=== PATIENT | female | born 1960 | race Caucasian/White ===

== ENCOUNTER 2017-06-14 08:22 | Emergency (ER) | payer SELFPAY ==
[~2017-06-14] VITALS: Ht 157.5 cm; Wt 74.0 kg
[~2017-06-14 08:22] MED LIST: ASPI-391 PO
[2017-06-14 08:23] VITALS: TEMP 36.8; Ht 157.5 cm; Wt 74.0 kg
[2017-06-14] MEDS ORDERED: ONDANSETRON INJ 2 MG/ML 2 ML VIAL IV STA (09:06)
[2017-06-14] MEDS ORDERED: SODIUM CHLORIDE 0.9% 1000ML 1,000 ML IV STA (09:06)
[2017-06-14] MEDS ORDERED: ACETAMINOPHEN IV 100 ML IV ONE (09:15)
[2017-06-14 09:27] LABS: HEMATOCRIT 44.5 % (37-47); HEMOGLOBIN 15.9 g/dL (12.0-16.0); MEAN CELL VOLUME 88.6 fL (80-100); MEAN CORPUSCULAR HEMOGLOBIN 31.7 pg (25-34); MEAN CORPUSCULAR HGB CONC 35.7 g/dl (32-36); PLATELET COUNT 158 K/uL (130-400); RED CELL DISTRIBUTION WIDTH CV 13.1 % (11.5-14.5); RED CELL DISTRIBUTION WIDTH SD 42.7 fL (36.4-46.3); WHITE BLOOD COUNT 9.23 K/uL (4.8-10.8)
--- NOTE | 2017-06-14 09:33 | DIAGNOSTIC IMAGING REPORT ---
SINGLE VIEW CHEST CLINICAL HISTORY: Generalized abdominal pain. Flulike symptoms. FINDINGS: An AP, portable, upright chest radiograph is obtained. No prior studies are available for comparison at the time of dictation. The examination is degraded by portable technique and patient rotation. The cardiomediastinal silhouette is unremarkable. Streaky bibasilar opacities likely represent atelectasis. The lungs and pleural spaces are otherwise clear. No pneumothorax is seen. The skeletal structures are osteopenic. The bony thorax is grossly intact. Mild degenerative change is noted in the thoracic spine. IMPRESSION: Streaky bibasilar airspace opacities likely represent atelectasis. Correlate clinically for evidence of an infectious/inflammatory pneumonitis. Electronically signed by: Fabio Humphrey M.D. 06/14/2017 9:32 AM Dictated Date/Time: 06/14/2017 9:31 AM
[2017-06-14 09:46] LABS: ALBUMIN 3.4 gm/dl (3.4-5.0); ALT/SGPT 18 U/L (12-78); BLOOD UREA NITROGEN 14 mg/dl (7-18); CALCIUM 9.3 mg/dl (8.5-10.1); CARBON DIOXIDE 21 mmol/L (21-32); CREATININE 0.75 mg/dl (0.60-1.20); GLUCOSE 105 mg/dl (70-99); LIPASE 108 U/L (73-393); POTASSIUM 3.5 mmol/L (3.5-5.1); SODIUM 133 mmol/L (136-145)
[2017-06-14 09:51] LABS: ALKALINE PHOSPHATASE 106 U/L (45-117); AST/SGOT 20 U/L (15-37); TOTAL PROTEIN 7.4 gm/dl (6.4-8.2)
[2017-06-14 09:52] LABS: BASO % 0.2 %; BASO ABS # 0.02 K/uL (0-0.2); IG# 0.02 K/uL (0.00-0.02); LYMPH % 14.7 %; LYMPH ABS # 1.36 K/uL (1.2-3.4); MONO % 7.2 %; MONO ABS # 0.66 K/uL (0.11-0.59); NEUT % 77.7 %; NEUT ABS # 7.17 K/uL (1.4-6.5)
[2017-06-14 10:28] LABS: INFLUENZA B ANTIGEN Neg for Influ B (NEG)
[2017-06-14] MEDS ORDERED: SODIUM CHLORIDE 0.9% 1000ML 1,000 ML IV ONE (11:00)
[2017-06-14 11:03] VITALS: BP 132/77; PULSE 81; O2SAT 94
[2017-06-14] MEDS ORDERED: ONDA4TAB46 PO (11:11)
[2017-06-14] MEDS ORDERED: BENZ100C18 PO (11:11)
[2017-06-14] MEDS ORDERED: NITR-5 PO (11:11)
--- NOTE | 2017-06-15 06:27 | EMERGENCY ROOM VISIT NOTE ---
ED Visit Note First contact with patient: 08:30 Chief Complaint: Flulike symptoms. History of Present Illness: Ms. Jacques is a 57-year-old white female who ambulates into the ED complaining of flulike symptoms. Patient reports her symptoms started last week and have been ongoing. She reports she was exposed to a grandchild who had been diagnosed with influenza. Patient reports her presentation of symptoms started last Sunday, 6 days ago , since that time they have been constant. She reports her symptoms started with generalized fatigue and exhaustion. This was associated with a decreased appetite. Then on Sunday she reports having a episode of nausea and vomiting and the development of upper respiratory tract symptoms including chills, body aches, sweats, runny nose, sinus congestion, ear pressure, sore throat and a nonproductive cough. Since that time her symptoms have waxed and waned in intensity but once again has made her generally feel fatigued. She then reports on Sunday she started developing medial thigh pain bilaterally , thoracic and lumbar back pain and started feeling short of breath. Currently she describes her thigh and back pain as a hot sensation. She rates her thigh and back pain and 8/10. These discomforts are nonradiating. She has not identified any aggravating or alleviating factors related to the symptoms. She reports she has been using Mucinex and TheraFlu for her symptoms without relief. Associated with her symptoms she reports she has been having sensations of fever but has not checked her temperature, her fatigue is increasing, she is not been able to sleep she has had intermittent nausea and one episode of vomiting, a mild headache and 3-4 episodes of light brown watery stools. She feels these are similar symptoms that her grandchild had with the flow. She denies skin eruptions, skin color changes, visual changes, hearing changes, difficulty swallowing, difficulty walking/coordinating body movements, neck pain /stiffness, chest pain, wheezing, hemoptysis, previous clots, claudication, cramping, recent surgery/inactivity/extended travel, abdominal pain, hematochezia, hematemesis, melena, urinary symptoms, hematuria, flank pain, lower extremity weakness/numbness/tingling. Review of Systems: As noted above in history of present illness. All body systems were reviewed and found to be negative as noted above. Past Medical History: Migraine headaches, depression, status post tonsillectomy and adenoidectomy.. Current Medications: Patient denies. Allergies to Medications: Patient denies. Social History: Patient is currently employed; she feels safe in her home environment; she admits to tobacco use and alcohol use Physical Examination: Vital Signs: Date Time Temp Pulse Resp B/P (MAP) Pulse Ox O2 Delivery O2 Flow Rate FiO2 06/14/17 11:03 81 23 132/77 94 Room Air 06/14/17 10:07 80 20 122/81 97 Room Air 06/14/17 09:39 84 06/14/17 09:37 86 21 137/78 97 Room Air 06/14/17 08:23 36.8 111 18 131/83 95 Room Air GENERAL: 57-year-old female in mild to moderate distress due to symptoms, nontoxic-appearing, afebrile and hemodynamically stable. NEUROLOGICAL: Awake, alert and oriented to person, place and time. Answering questions appropriately and following commands. Normal gait. Good hand eye coordination. Cranial nerves II through XII grossly intact. Good short-term and long-term recall. SKIN: Warm, dry and pink. No soft tissue eruptions or trauma noted. HEENT: Atraumatic and normocephalic. No erythema or tenderness over the frontal or maxillary sinuses. External ears are nontender. Auditory canals are pink and patent. Tympanic membranes were minimally erythematous but not bulging; normal light reflex. PERRLA. EOMI without nystagmus. Sclera white and conjunctiva pink without drainage. No drainage from naris and audible congestion. Oral cavity moist and pink. Uvula is midline and no abscesses were seen. Pharynx is nonerythematous or edematous. Speech normal and clear. No lymphadenopathy. Trachea midline. No jugular venous distention. BACK: No tenderness over the bony cervical, thoracic and lumbar spine. No nuchal rigidity or meningismus. Mild tenderness throughout the lower thoracic and lumbar para musculature bilaterally. No CVA tenderness. THORAX: Lungs sounds are clear to auscultation and equal bilaterally with symmetrical chest wall. No wheezing, rales or rhonchi. No crepitus, tenderness , subcutaneous air or deformities noted. No increased respiratory effort or rate. HEART: Tachycardic rate and rhythm. No gallops, rubs or murmurs are appreciated. PMI was not displaced. No lifts, heaves and thrills. ABDOMEN: Soft and nontender. Positive bowel sounds in all quadrants. No guarding, rigidity or organomegaly. EXTREMITIES: Moves all extremities well on command and with purpose. All distal neurovascular statuses are intact and equal bilaterally. No calf tenderness or cords. ED Course: Patient is assessed as noted above. Patient's medication list was reviewed. Laboratory Testing: Test 06/14/17 09:15 06/14/17 09:45 06/14/17 10:00 06/14/17 10:41 Range/Units White Blood Count 9.23 4.8-10.8 K/uL Red Blood Count 5.02 4.2-5.4 M/uL Hemoglobin 15.9 12.0-16.0 g/dL Hematocrit 44.5 37-47 % Mean Corpuscular Volume 88.6 80-100 fL Mean Corpuscular Hemoglobin 31.7 25-34 pg Mean Corpuscular Hemoglobin Concent 35.7 32-36 g/dl Platelet Count 158 130-400 K/uL Mean Platelet Volume 11.0 7.4-10.4 fL Neutrophils (%) (Auto) 77.7 % Lymphocytes (%) (Auto) 14.7 % Monocytes (%) (Auto) 7.2 % Eosinophils (%) (Auto) 0.0 % Basophils (%) (Auto) 0.2 % Neutrophils # (Auto) 7.17 1.4-6.5 K/uL Lymphocytes # (Auto) 1.36 1.2-3.4 K/uL Monocytes # (Auto) 0.66 0.11-0.59 K/uL Eosinophils # (Auto) 0.00 0-0.5 K/uL Basophils # (Auto) 0.02 0-0.2 K/uL RDW Standard Deviation 42.7 36.4-46.3 fL RDW Coefficient of Variation 13.1 11.5-14.5 % Immature Granulocyte % (Auto) 0.2 % Immature Granulocyte # (Auto) 0.02 0.00-0.02 K/uL Sodium Level 133 136-145 mmol/L Potassium Level 3.5 3.5-5.1 mmol/L Chloride Level 100 98-107 mmol/L Carbon Dioxide Level 21 21-32 mmol/L Anion Gap 11.0 3-11 mmol/L Blood Urea Nitrogen 14 7-18 mg/dl Creatinine 0.75 0.60-1.20 mg/dl Est Creatinine Clear Calc Drug Dose 77.0 ml/min Estimated GFR () 101.8 Estimated GFR (Non- 87.9 BUN/Creatinine Ratio 19.3 10-20 Random Glucose 105 70-99 mg/dl Calcium Level 9.3 8.5-10.1 mg/dl Total Bilirubin 0.4 0.2-1 mg/dl Direct Bilirubin 0.1 0-0.2 mg/dl Aspartate Amino Transf (AST/SGOT) 20 15-37 U/L Alanine Aminotransferase (ALT/SGPT) 18 12-78 U/L Alkaline Phosphatase 106 45-117 U/L Troponin I < 0.015 < 0.015 0-0.045 ng/ml Total Protein 7.4 6.4-8.2 gm/dl Albumin 3.4 3.4-5.0 gm/dl Lipase 108 73-393 U/L Monoscreen NEG NEG Influenza Type A Antigen Neg for Influ A NEG Influenza Type B Antigen Neg for Influ B NEG Urine Color DK YELLOW Urine Appearance CLOUDY CLEAR Urine pH 5.5 4.5-7.5 Urine Specific Ord 1.028 1.000-1.030 Urine Protein 1+ NEG Urine Glucose (UA) NEG NEG Urine Ketones 3+ NEG Urine Occult Blood 2+ NEG Urine Nitrite NEG NEG Urine Bilirubin NEG NEG Urine Urobilinogen NEG NEG Urine Leukocyte Esterase NEG NEG Urine WBC (Auto) 1-5 0-5 /hpf Urine RBC (Auto) 5-10 0-4 /hpf Urine Hyaline Casts (Auto) 1-5 0-5 /lpf Urine Epithelial Cells (Auto) >30 0-5 /lpf Urine Bacteria (Auto) 2+ NEG Urine Pathogenic Casts 0 /lpf Urine Mucus PRESENT NONE PRSENT Group A Streptococcus Screen: Negative. Culture pending. Urine Culture: Pending. Patient was hydrated with 2 L of normal saline and received 1 g of acetaminophen IV for pain and 4 mg of Zofran IV for nausea. Patient was reassessed multiple times during her stay in the emergency department. Chest X-Ray: Was read by myself and the radiologist showing streaky bilateral airspace opacities likely representing atelectasis. Normal heart silhouette. No pneumothorax. Radiologist also notes mild degenerative changes noted in the thoracic spine. EKG: Was read by myself and reviewed with Dr. Toribio; shows sinus rhythm with a shortened SD interval of 108 ms. Ventricular rate 83 bpm. There is 1 premature supraventricular complex. I do not appreciate any signs of ischemia, injury or infarction. This was compared to a previous and no changes well found except for the premature complex. Patient was hydrated multiple times during her stay in the emergency department. Patient's case was reviewed with Dr. Toribio; we agreed on diagnostic approach , treatment, disposition and plan. Patient was educated about today's findings and instructed on her treatment plan ; she verbalizes understanding and agreement with this plan. Clinical Impression: Upper respiratory tract symptoms. Fatigue. Nausea/ vomiting. Dehydration. Possible early urinary tract infection. Decision-Making: Initially my differential diagnosis I considered influenza, pneumonia, urinary tract infection, sepsis, electrolyte abnormalities, metabolic disorders and other causes. Disposition: Patient discharged home in stable condition; prior to departure she was reassessed and subjectively reported she was feeling better. She rated her body aches 4/10. Plan: Patient was encouraged to continue her current medications as prescribed. Patient was encouraged alternate ibuprofen and acetaminophen every 3 hours as needed for pain or fevers. Patient was prescribed Zofran 4 mg every 6 hours as needed for nausea/vomiting. Patient was encouraged prescribed Tessalon Perles 100 mg every 8 hours for her cough. Patient was prescribed Macrobid 100 mg 2 times a day for her possible early urinary tract infection. Patient was encouraged to stay well-hydrated with increased clear fluids. Patient was encouraged to contact her family physician for follow-up care in 2- 3 days and to check on her urine culture results. Patient was encouraged return the ED for worsening or uncontrolled proceed fevers, worsening/uncontrolled pain, worsening/uncontrolled vomiting, shortness of breath/wheezing, coughing up blood, worsening fatigue or any new/concerning symptoms.
== END 2017-06-14 11:26 | disposition home or self-care (01) ==
LOC: C.EDB 08:23 → C.EDA 11:26
DX: R11.2 Nausea with vomiting, unspecified (principal); E86.0 Dehydration; R09.81 Nasal congestion; R53.83 Other fatigue; R91.8 Other nonspecific abnormal finding of lung field